=== PATIENT | female | born 1985 | race African-American/Black ===

== ENCOUNTER 2016-07-11 16:05 | Emergency (ER) | payer OTHER ==
[~2016-07-11] VITALS: Ht 170.2 cm; Wt 68.2 kg
[~2016-07-11 16:05] MED LIST: AMLO-512 PO; TRAM50TA4 PO
[2016-07-11 16:26] LABS: GLUCOSE,POINT OF CARE 110 MG/DL (70-110)
[2016-07-11] MEDS ORDERED: SODIUM CHLORIDE 0.9% 1,000 ML IV ONE (17:00)
[2016-07-11 17:12] LABS: BASOPHILS % (AUTO) 0.2 % (0.0-2.0); EOSINOPHILS % (AUTO) 0.1 % (1.0-6.0); HEMATOCRIT 37.3 % (36-46); HEMOGLOBIN 12.1 g/dL (12.0-16.0); LYMPHOCYTES # (AUTO) 0.6 K/uL (1.0-4.8); LYMPHOCYTES % (AUTO) 8.1 % (22.0-44.0); MEAN CORPUSCULAR HEMOGLOBIN 26.6 pg (26.0-34.0); MEAN CORPUSCULAR HGB CONC 32.4 G/dL (31.0-37.0); MEAN CORPUSCULAR VOLUME 82 fL (80-100); MONOCYTES # (AUTO) 0.3 K/uL (0.1-1.0); MONOCYTES % (AUTO) 4.3 % (2.0-9.0); NEUTROPHILS # (AUTO) 6.9 K/uL (1.8-7.7); PLATELET COUNT (AUTO) 228 K/uL (150-450); RED BLOOD CELL COUNT(AUTO) 4.55 MIL/uL (4.00-5.20); RED CELL DISTRIBUTION WIDTH 13.6 % (11.5-14.5); WHITE BLOOD COUNT (AUTO) 7.9 K/uL (4.5-11.0)
[2016-07-11 17:13] LABS: NEUTROPHILS % (AUTO) 87.3 % (40.0-70.0)
[2016-07-11 17:29] LABS: ANION GAP 10 mmol/L (8-16); CALCIUM, TOTAL 8.5 mg/dL (8.8-10.5); CARBON DIOXIDE 28 mmol/L (22-29); CHLORIDE 101 mmol/L (98-107); CREATININE 1.08 mg/dL (0.60-1.30); GLOMERULAR FILTR. RATE CALC > 60 mL/min (>60); POTASSIUM 4.2 mmol/L (3.5-5.1); SODIUM SERUM 139 mmol/L (136-145); UREA NITROGEN, BLOOD 9 mg/dL (7-18)
[2016-07-11 17:30] LABS: ALANINE AMINOTRANSFERASE 13 U/L (12-78); ALBUMIN 3.9 g/dL (3.4-5.0); ASPARTATE AMINOTRANSFERASE 14 U/L (15-37); BILIRUBIN,TOTAL 0.4 mg/dL (0.1-1.0); CREATINE KINASE, TOTAL 55 U/L (26-192); TOTAL PROTEIN, SERUM 8.4 g/dL (6.4-8.2)
[2016-07-11 18:56] VITALS: BP 115/75
== END 2016-07-11 18:59 | disposition home or self-care (01) ==
LOC: EMS 16:07
DX: S82.831A Other fracture of upper and lower end of right fibula, initial encounter for closed fracture (principal); E86.0 Dehydration; I10 Essential (primary) hypertension; W19.XXXA Unspecified fall, initial encounter; Y93.89 Activity, other specified; Y92.89 Other specified places as the place of occurrence of the external cause; Y99.8 Other external cause status
CPT/HCPCS: 29515; 82962; 93005; 96360; 99285

== ENCOUNTER 2017-03-12 02:13 | Inpatient (IN) | payer OTHER ==
[~2017-03-12] VITALS: Ht 170.2 cm; Wt 66.3 kg
[~2017-03-12 02:13] MED LIST changes: -TRAM50TA4 PO
[2017-03-12 03:10] LABS: ANION GAP 5 mmol/L (8-16); CALCIUM, TOTAL 8.4 mg/dL (8.8-10.5); CARBON DIOXIDE 30 mmol/L (22-29); CHLORIDE 103 mmol/L (98-107); CREATININE 0.93 mg/dL (0.60-1.30); GLOMERULAR FILTR. RATE CALC > 60 mL/min (>60); GLUCOSE,RANDOM 104 mg/dL (70-110); POTASSIUM 3.4 mmol/L (3.5-5.1); SODIUM SERUM 138 mmol/L (136-145); UREA NITROGEN, BLOOD 10 mg/dL (7-18)
[2017-03-12 03:15] LABS: ALANINE AMINOTRANSFERASE 18 U/L (12-78); ALBUMIN 3.7 g/dL (3.4-5.0); ALKALINE PHOSPHATASE 48 U/L (46-116); ASPARTATE AMINOTRANSFERASE 18 U/L (15-37); BASOPHILS # (AUTO) 0.01 K/uL (0.00-0.20); BASOPHILS % (AUTO) 0.1 % (0.0-2.0); BILIRUBIN,TOTAL 0.3 mg/dL (0.1-1.0); EOSINOPHILS # (AUTO) 0.26 K/uL (0.00-0.70); HEMATOCRIT 34.2 % (36-46); HEMOGLOBIN 11.5 g/dL (12.0-16.0); LIPASE 160 U/L (73-393); LYMPHOCYTES # (AUTO) 1.3 K/uL (1.0-4.8); LYMPHOCYTES % (AUTO) 15.5 % (22.0-44.0); MEAN CORPUSCULAR HEMOGLOBIN 27.6 pg (26.0-34.0); MEAN CORPUSCULAR HGB CONC 33.8 G/dL (31.0-37.0); MEAN CORPUSCULAR VOLUME 82 fL (80-100); MONOCYTES # (AUTO) 0.4 K/uL (0.1-1.0); MONOCYTES % (AUTO) 4.4 % (2.0-9.0); NEUTROPHILS # (AUTO) 6.3 K/uL (1.8-7.7); NEUTROPHILS % (AUTO) 76.8 % (40.0-70.0); PLATELET COUNT (AUTO) 237 K/uL (150-450); RED BLOOD CELL COUNT(AUTO) 4.18 MIL/uL (4.00-5.20); RED CELL DISTRIBUTION WIDTH 13.8 % (11.5-14.5)
[2017-03-12 03:19] LABS: BILIRUBIN,URINE NEGATIVE (NEGATIVE); GLUCOSE, URINE (UA) NEGATIVE (NEGATIVE); KETONES,URINE NEGATIVE (NEGATIVE); LEUKOCYTE ESTERASE ,URINE NEGATIVE (NEGATIVE); NITRATE,URINE NEGATIVE (NEGATIVE); OCCULT BLOOD,URINE LARGE (NEGATIVE); PROTEIN,URINE NEGATIVE (NEGATIVE)
[2017-03-12 03:20] LABS: APPEARANCE,URINE HAZY (CLEAR)
[2017-03-12 03:32] LABS: BACTERIA,URINE Rare /HPF (None Seen); SQUAMOUS EPITHELIAL CELL,UR Rare /LPF (None Seen)
[2017-03-12] MEDS ORDERED: ACETAMINOPHEN 500 MG TABLET PO ONE (04:00)
[2017-03-12 04:03] LABS: HCG,QUANTITATIVE 1544 mIU/mL (0-6)
[2017-03-12] MEDS ORDERED: SODIUM CHLORIDE 0.9% 1,000 ML IV ONE ×2 (06:00→08:00)
[2017-03-12] MEDS ORDERED: ONDANSETRON HCL 4 MG/2 ML VIAL IVP PRN (08:00)
[2017-03-12] MEDS ORDERED: MORPHINE SULFATE 4 MG/ML SYRINGE IVP PRN (08:00)
[2017-03-12 09:05] VITALS: BP 132/87
[2017-03-12 09:52] LABS: HEMOGLOBIN 10.8 g/dL (12.0-16.0)
[2017-03-12] MEDS ORDERED: BUPIVACAINE HCL/PF 0.25% 30 ML VIAL ONE (10:11)
[2017-03-12] MEDS ORDERED: SODIUM CL IRRIG SOLN BAG 3,000 ML IRRIG ONE (10:12)
[2017-03-12] MEDS ORDERED: RINGERS SOLUTION,LACTATED 1,000 ML IV ONE ×2 (11:30→13:33)
[2017-03-12] MEDS ORDERED: RINGERS SOLUTION,LACTATED 1,000 ML IV SCH (11:30)
[2017-03-12 11:35] VITALS: BP 138/97
[2017-03-12] MEDS ORDERED: MIDAZOLAM HCL 2 MG/2 ML VIAL IVP ONE (12:00)
[2017-03-12] MEDS ORDERED: FentaNYL CITRATE-PF 100 MCG/2 ML VIAL IVP ONE (12:00)
[2017-03-12] MEDS ORDERED: GUM MASTIC/STORAX/MSAL/ALCOHOL LIQUID 0.67 ML VIAL TP ONE (13:59)
[2017-03-12] MEDS ORDERED: MEPERIDINE-PF 25 MG/ML SYRINGE IVP PRN (14:00)
[2017-03-12] MEDS ORDERED: FentaNYL CITRATE-PF 100 MCG/2 ML VIAL IVP PRN (14:00)
[2017-03-12] MEDS ORDERED: OXYGEN THERAPY IH SCH (14:00)
[2017-03-12] MEDS ORDERED: HYDROmorphone 2 MG/ML SYRINGE IVP PRN (14:00)
[2017-03-12] MEDS ORDERED: ONDANSETRON HCL 4 MG/2 ML VIAL ONE (14:31)
[2017-03-12] MEDS ORDERED: LORazepam 2 MG/ML VIAL ONE (14:33)
[2017-03-12] MEDS ORDERED: PROMETHAZINE HCL 25 MG/ML VIAL ONE (14:40)
[2017-03-12 15:35] VITALS: BP 129/89
[2017-03-12] MEDS ORDERED: HYDR-309 PO ×2 (15:47→16:00)
[2017-03-12] MEDS ORDERED: DOCU250C91 PO (16:01)
[2017-03-12] MEDS ORDERED: IBUP-2070 PO (16:01)
[2017-03-12] MEDS ORDERED: ONDANSETRON HCL 4 MG/2 ML VIAL IVP ONE (18:34)
[2017-03-12] MEDS ORDERED: NEOSTIGMINE METHYLSULFATE 1 MG/ML 10 ML VIAL IVP ONE (18:34)
[2017-03-12] MEDS ORDERED: KETOROLAC TROMETHAMINE 60 MG/2 ML VIAL IM ONE (18:34)
[2017-03-12] MEDS ORDERED: GLYCOPYRROLATE 0.2 MG/ML VIAL IM ONE (18:34)
[2017-03-12] MEDS ORDERED: LIDOCAINE HCL/PF 2% 5 ML VIAL INJ ONE (18:34)
[2017-03-12] MEDS ORDERED: DEXAMETHASONE SOD PHOS 4 MG/ML VIAL IVP ONE (18:34)
[2017-03-12] MEDS ORDERED: SUCCINYLCHOLINE CHLORIDE 20 MG/ML 10 ML VIAL IVP ONE (18:34)
[2017-03-12] MEDS ORDERED: PROPOFOL 1% 20 ML VIAL IVP ONE (18:34)
[2017-03-12] MEDS ORDERED: INFLUENZA VIRUS VACCINE QVS 2017-18 (3YR+)/PF 60 MCG/0.5 ML SYRINGE IM ONE (19:15)
== END 2017-03-12 18:35 | disposition home or self-care (01) | DRG 545 ==
LOC: EMS 02:14 → 4E 08:03
PROVIDERS: ADMIT Obstetrics & Gynecology Gynecology; ATTEND Obstetrics & Gynecology Gynecology
PROC: 0UT54ZZ Resection of Right Fallopian Tube, Percutaneous Endoscopic Approach (ICD-10-PCS; principal; 2017-03-12 13:01)
DX: O00.90 Unspecified ectopic pregnancy without intrauterine pregnancy (principal); E86.0 Dehydration
CPT/HCPCS: 76801; 76817; 85014; 85018; 86901; 88305; 96360; 99285; J0330; J0690; J1100; J1885; J2060; J2250; J2405; J2550; J2704; J3010; J3490; J7030; J7120